=== PATIENT | female | born 1995 | race Caucasian/White ===

== ENCOUNTER 2019-09-18 16:40 | Outpatient (RCR) | payer BC, SELFPAY ==
[2019-07-31 17:20] VITALS: BP 120/75; PULSE 95
[2019-08-07 17:09] VITALS: BP 122/70; PULSE 83
[2019-08-14 17:11] VITALS: BP 119/73; PULSE 92
[2019-08-17 17:11] VITALS: BP 123/70; PULSE 91
[2019-08-21 17:08] VITALS: BP 119/77; PULSE 92
[2019-08-28 17:10] VITALS: BP 118/70; PULSE 96
[2019-09-04 17:01] VITALS: BP 128/72; PULSE 88
[2019-09-11 17:22] VITALS: BP 119/49; PULSE 99
[2019-09-18 17:20] VITALS: BP 125/72; PULSE 97
== END 2019-10-05 07:24 | disposition home or self-care (01) ==
LOC: ANHOBOP 16:40
PROVIDERS: PCP Family Medicine; Visit Provider Obstetrics & Gynecology
DX: O99.353 Diseases of the nervous system complicating pregnancy, third trimester (principal); G40.909 Epilepsy, unspecified, not intractable, without status epilepticus; Z3A.32 32 weeks gestation of pregnancy; Z3A.33 33 weeks gestation of pregnancy; Z3A.34 34 weeks gestation of pregnancy; Z3A.35 35 weeks gestation of pregnancy; Z3A.36 36 weeks gestation of pregnancy; Z3A.37 37 weeks gestation of pregnancy; Z3A.38 38 weeks gestation of pregnancy; Z3A.39 39 weeks gestation of pregnancy
CPT/HCPCS: 59025

== ENCOUNTER 2019-09-19 18:01 | Observation (INO) | payer BC, SELFPAY ==
[2019-09-19 18:33] VITALS: BP 131/93; PULSE 99
[2019-09-19 18:35] LABS: Basophils Percent Auto 0.1 % (0.2-1.2); Eosinophils Absolute Auto 0.1 K/mm3 (0-0.3); Eosinophils Percent Auto 0.7 % (0-4.4); Hematocrit 32.7 % (37.0-47.0); Hemoglobin 10.2 g/dL (12.0-15.0); Immature Granulocyte Absolute 0.05 K/mm3 (0.00-0.031); Immature Granulocyte Percent A 0.5 % (0-0.5); Lymphocytes Absolute Auto 2.22 K/mm3 (0.9-3.2); Lymphocytes Percent Auto 23.5 % (18.3-44.2); Mean Corpuscular HGB Conc 31.2 g/dl (32-36); Mean Corpuscular Hemoglobin 25.2 pg (26-34); Mean Corpuscular Volume 80.9 fl (80-100); Mean Platelet Volume 11.9 fl (7.4-10.4); Monocytes Absolute Auto 0.6 K/mm3 (0.1-0.6); Monocytes Percent Auto 5.8 % (2.6-8.5); Neutrophils Absolute Auto 6.5 K/mm3 (1.3-6.7); Neutrophils Percent Auto 69.4 % (45.5-73.1); Platelet Count Result 234 k/mm3 (150-375); Red Blood Count 4.04 M/mm3 (4.2-5.4); Red Cell Distribution Width 15.8 % (11.5-14.5); White Blood Count 9.4 K/mm3 (4.5-10.0)
[2019-09-19 18:38] VITALS: BMI 43.1
--- NOTE | 2019-09-19 18:46 | LDADM ---
This patient, Maira Cifuentes, was admitted to Labor/Delivery/Recovery 105 on 09/19/19 at 18:01. Plans for labor, pain management and were discussed with patient. Patient/family oriented to hospital policies and general routines including ID bracelet, bed and alarms, visiting hours, pain management, procedures, bathroom and other care routines, personal items, smoking policy, room service/diet and guest tray routines, security routines, and visiting hours. Patient/Family are encouraged to report perceived risks to care and to ask questions if they do not understand what they are told or what they should do. See OBIX for further documentation.
[2019-09-19] MEDS: DINOPROSTONE 10 MG VAG INSERT VAGINAL (19:22)
[2019-09-19] MEDS: AMPICILLIN 2 GM/NS 100 ML 2 GM/100 ML BAG IVPB (19:26)
[2019-09-19] MEDS: LACTATED RINGERS 1,000 ML 125 ML IV CONT (19:27)
[2019-09-19] MEDS: levETIRAcetam 500 MG TABLET 1000 MG PO (21:19)
[2019-09-19] MEDS: AMPICILLIN 1 GM/NS 50 ML 1 GM/50 ML BAG IVPB (23:22)
[2019-09-19 23:28] VITALS: BP 129/79; PULSE 65
[2019-09-20] VITALS (11 sets, daily range): BP systolic 119–133; BP diastolic 52–85; PULSE 74–97; TEMP 36.5–36.8
[2019-09-20] MEDS: AMPICILLIN 1 GM/NS 50 ML 1 GM/50 ML BAG IVPB ×2 (03:56→08:14)
--- NOTE | 2019-09-20 07:32 | WPDOBADMIT ---
Obstetrics - Admit Note Admission Note: record reviewed. No pertinent additions to the history and/or any subsequent changes in the physical findings that are not consistent with the expected course of the were found. Additions to the history and/or subsequent changes in the physical findings follow. G1 at 39+2 for induction of labor, s/p cervidil. Cervix FT/30/-3. AROM unable to be accomplished at this time. Start pitocin.
[2019-09-20 07:40] LABS: Rapid Plasma Reagin Non-Reactive (NonReactive)
[2019-09-20] MEDS: levETIRAcetam 500 MG TABLET 1000 MG PO (07:57)
[2019-09-20] MEDS: OXYTOCIN 30 UNITS/NS 500 ML 30 UNITS/500 ML BAG 6 UNITS IV CONT (08:14)
--- NOTE | 2019-09-28 07:49 | P.PNOB_ITS ---
OB - Triage/Final Diagnosis Evaluation Laboratory results: Laboratory Tests 09/19/19 09/19/19 09/19/19 18:30 18:30 18:30 WBC 9.4 RBC 4.04 L Hgb 10.2 L Hct 32.7 L MCV 80.9 MCH 25.2 L MCHC 31.2 L RDW 15.8 H Plt Count 234 MPV 11.9 H Immature Gran % (Auto) 0.5 Neut % (Auto) 69.4 Lymph % (Auto) 23.5 [place] % (Auto) 5.8 Eos % (Auto) 0.7 Baso % (Auto) 0.1 L Lymph # (Auto) 2.22 [place] # (Auto) 0.6 Eos # (Auto) 0.1 Baso # (Auto) 0.0 Abs Immat Gran (auto) 0.05 H Absolute Neuts (auto) 6.5 Absolute Nucleated RBC 0.0 Nucleated RBC % 0.0 RPR Non-reactive Blood Type O Positive Antibody Screen Negative Final Diagnosis (1) Hypertension affecting in third trimester: Code(s): O16.3 - Unspecified maternal hypertension, third trimester Status: Acute
== END 2019-09-20 10:00 | disposition home or self-care (01) ==
PROVIDERS: Admitting Provider Obstetrics & Gynecology; PCP Family Medicine; Visit Provider Obstetrics & Gynecology
DX: O16.3 Unspecified maternal hypertension, third trimester (principal); Z3A.39 39 weeks gestation of pregnancy
CPT/HCPCS: 36415; 85025; 86592; 86850; 86900; 86901; 96365; 96366; 96375; 96376; A9270; G0378; G0379; J0290; J2590; J7120

== ENCOUNTER 2019-10-03 18:04 | Inpatient (IN) | payer BC, SELFPAY ==
[2019-10-03] VITALS (8 sets, daily range): BP systolic 121–143; BP diastolic 74–83; PULSE 71–111; TEMP 36.3–36.4; BMI 42.7
[2019-10-03 18:38] LABS: Basophils Percent Auto 0.2 % (0.2-1.2); Eosinophils Absolute Auto 0.1 K/mm3 (0-0.3); Eosinophils Percent Auto 0.8 % (0-4.4); Hematocrit 34.6 % (37.0-47.0); Hemoglobin 10.5 g/dL (12.0-15.0); Immature Granulocyte Absolute 0.05 K/mm3 (0.00-0.031); Immature Granulocyte Percent A 0.5 % (0-0.5); Lymphocytes Absolute Auto 2.25 K/mm3 (0.9-3.2); Lymphocytes Percent Auto 22.8 % (18.3-44.2); Mean Corpuscular HGB Conc 30.3 g/dl (32-36); Mean Corpuscular Hemoglobin 24.6 pg (26-34); Mean Platelet Volume 12.4 fl (7.4-10.4); Monocytes Absolute Auto 0.6 K/mm3 (0.1-0.6); Monocytes Percent Auto 5.6 % (2.6-8.5); Neutrophils Absolute Auto 6.9 K/mm3 (1.3-6.7); Neutrophils Percent Auto 70.1 % (45.5-73.1); Nucleated Red Blood Cells Perc 0.2 % (0.0-0.2); Platelet Count Result 239 k/mm3 (150-375); Red Blood Count 4.27 M/mm3 (4.2-5.4); Red Cell Distribution Width 16.4 % (11.5-14.5); White Blood Count 9.9 K/mm3 (4.5-10.0)
--- NOTE | 2019-10-03 18:39 | LDADM ---
This patient, Maira Cifuentes, was admitted to Labor/Delivery/Recovery 108 on 10/03/19 at 18:04. Plans for labor, pain management and were discussed with patient. Patient/family oriented to hospital policies and general routines including ID bracelet, bed and alarms, visiting hours, pain management, procedures, bathroom and other care routines, personal items, smoking policy, room service/diet and guest tray routines, security routines, and visiting hours. Patient/Family are encouraged to report perceived risks to care and to ask questions if they do not understand what they are told or what they should do. See OBIX for further documentation.
[2019-10-03] MEDS: MISOPROSTOL 25 MCG TABLET VAGINAL ×2 (19:02→23:06)
[2019-10-03] MEDS: LACTATED RINGERS 1,000 ML 125 ML IV CONT (19:02)
[2019-10-03] MEDS: AMPICILLIN 2 GM/NS 100 ML 2 GM/100 ML BAG IVPB (19:02)
[2019-10-03] MEDS: levETIRAcetam 500 MG TABLET 1000 MG PO (22:22)
[2019-10-03] MEDS: AMPICILLIN 1 GM/NS 50 ML 1 GM/50 ML BAG IVPB (23:07)
[2019-10-04] VITALS (199 sets, daily range): BP systolic 95–156; BP diastolic 39–107; PULSE 61–147; TEMP 36.6–37.6; O2SAT 96–100
[2019-10-04] MEDS: AMPICILLIN 1 GM/NS 50 ML 1 GM/50 ML BAG IVPB ×6 (03:08→23:05)
[2019-10-04] MEDS: MISOPROSTOL 25 MCG TABLET VAGINAL (03:08)
--- NOTE | 2019-10-04 06:25 | WPDANESEPP ---
Anes - Eval Pre Procedure Procedure: labor epidural Date/Time: 10/04/19 06:25 Surgeon: raji Preop Diagnosis: pain during labor Pre Op Diagnosis: Ind Patient Data Age: 24 Gender: F Height: 1.57 m Weight: 106 kg Last Vital Signs Temp 36.6 C 10/04/19 03:08 Pulse 80 10/04/19 03:08 BP 156/83 H 10/04/19 03:08 Allergies Allergy/AdvReac Type Severity Reaction Status Date / Time No Known Allergies Allergy Mild Verified 08/28/19 16:47 Home Medications Medication Instructions Recorded Confirmed Type PNV cmb#95-ferrous fumarate-FA 1 tablet PO DAILY 08/28/19 08/30/19 History [] aspirin 81 mg PO DAILY 08/28/19 08/30/19 History cetirizine [Zyrtec] 10 mg PO DAILY 08/28/19 08/30/19 History folic acid 1,600 mcg PO BID 08/28/19 09/19/19 History levetiracetam [Keppra] 1,000 mg PO BID 08/28/19 09/19/19 History famotidine [Pepcid] 20 mg PO PRN PRN 08/30/19 09/19/19 History Laboratory Tests 10/03/19 10/03/19 10/03/19 18:33 18:33 18:33 WBC 9.9 K/mm3 K/mm3 (4.5-10.0) RBC 4.27 M/mm3 M/mm3 (4.2-5.4) Hgb 10.5 g/dL L g/dL (12.0-15.0) Hct 34.6 % L % (37.0-47.0) MCV 81.0 fl fl (80-100) MCH 24.6 pg L pg (26-34) MCHC 30.3 g/dl L g/dl (32-36) RDW 16.4 % H % (11.5-14.5) Plt Count 239 k/mm3 k/mm3 (150-375) MPV 12.4 fl H fl (7.4-10.4) Immature Gran % (Auto) 0.5 % % (0-0.5) Neut % (Auto) 70.1 % % (45.5-73.1) Lymph % (Auto) 22.8 % % (18.3-44.2) [place] % (Auto) 5.6 % % (2.6-8.5) Eos % (Auto) 0.8 % % (0-4.4) Baso % (Auto) 0.2 % % (0.2-1.2) Lymph # (Auto) 2.25 K/mm3 K/mm3 (0.9-3.2) [place] # (Auto) 0.6 K/mm3 K/mm3 (0.1-0.6) Eos # (Auto) 0.1 K/mm3 K/mm3 (0-0.3) Baso # (Auto) 0.0 K/mm3 K/mm3 (0.0-0.1) Abs Immat Gran (auto) 0.05 K/mm3 H K/mm3 (0.00-0.031) Absolute Neuts (auto) 6.9 K/mm3 H K/mm3 (1.3-6.7) Absolute Nucleated RBC 0.0 K/mm3 K/mm3 (0.0-0.012) Nucleated RBC % 0.2 % % (0.0-0.2) RPR Pending Blood Type O Positive Antibody Screen Negative Patient hx anesthesia problems: none Family hx anesthesia problems: none PMFSH Past Medical History Medical History (Updated 10/04/19 @ 06:26 by Andreea Oconnor CRNA) GERD (gastroesophageal reflux disease) Hypertension affecting in third trimester Obesity Family History Family History (Updated 08/30/19 @ 13:39 by Maria C Ricardo RN) Mother Infertility Grandparent Diabetes mellitus Social History Social History Smoking status: Never smoker Second hand tobacco smoke exposure: No Substance use: never Gender identity (if verbalized by the patient): Female Spiritual care concerns: No Exam Day of Procedure 10/04/19 06:25
--- NOTE | 2019-10-04 07:41 | P.HP_ITS ---
Obstetrics - Admit Note Admission Note: record reviewed. No pertinent additions to the history and/or any subsequent changes in the physical findings that are not consistent with the expected course of the were found. Additions to the history and/or subsequent changes in the physical findings follow. G1 at 41+2 for induction of labor. s/p cytotec X 3. Cervix 1/50/- 2/soft/anterior. AROM with clear fluid. Start pitocin. GBS+ so continue antibiotics.
[2019-10-04] MEDS: OXYTOCIN 30 UNITS/NS 500 ML 30 UNITS/500 ML BAG 6 UNITS IV CONT (08:52)
[2019-10-04] MEDS: LACTATED RINGERS 1,000 ML 125 ML IV CONT ×3 (08:52→20:49)
[2019-10-04] MEDS: levETIRAcetam 500 MG TABLET 1000 MG PO ×2 (08:52→20:49)
[2019-10-04 11:55] LABS: Rapid Plasma Reagin Non-Reactive (NonReactive)
[2019-10-04] MEDS: LORATADINE 10 MG TABLET PO (20:49)
[2019-10-05] VITALS (34 sets, daily range): BP systolic 91–143; BP diastolic 31–106; PULSE 74–166; RESP 16; TEMP 36.6–37.1; O2SAT 98–100
[2019-10-05] MEDS: METHYLERGONOVINE MALEATE 0.2 MG/ML VIAL IM (01:23)
--- NOTE | 2019-10-05 01:36 | PM.OBPRVD ---
OB - Delivery Note Procedure Delivery date: 10/05/19 events: Labor Induction Intrapartal events: Prolonged Labor > 20 hours and Seizure Activity (history of) Induction method: AROM, per pitocin protocol and other (cytotec) Delivery monitor: external FHT, external uterine and internal uterine Route of delivery: Laceration description: Perineal - 2nd Degree Delivery repair: vicryl (2-0) Specimen: No Estimated blood loss (mL): 212 Anesthesia type: Epidural Disposition: floor [place] Baby Date of : 10/05/19 Time of : 01:15 Weeks of gestation at delivery: 41 Infant gender: Female Weight (pounds): 6 Weight (ounces): 13 presentation: vertex position: Right Occiput Anterior Placenta delivery description: Spontaneous cord vessel description: 3 Vessels and Nuchal Cord score one minute: 8 score five minutes: 9
[2019-10-05] MEDS: OXYTOCIN 30 UNITS/NS 500 ML 30 UNITS/500 ML BAG 125 UNITS IV CONT (01:49)
[2019-10-05] MEDS: ONDANSETRON INJ 4 MG/2 ML VIAL IV PUSH (02:07)
[2019-10-05] MEDS: IBUPROFEN 600 MG TABLET PO ×4 (02:54→23:57)
[2019-10-05] MEDS: WITCH HAZEL 40 PADS 1 PAD TOPICAL (03:21)
[2019-10-05] MEDS: BENZOCAINE 20% AER SPR (*SP) 56 GM CAN 1 SPRAY TOPICAL (03:21)
--- NOTE | 2019-10-05 04:05 | OBPPTRN ---
Patient transferred to post room #292 via wheelchair. Support person present. Oriented to unit, room, information board, rooming in, admission packet and security measures. Patient verbalizes understanding. with patient.
--- NOTE | 2019-10-05 07:50 | PM.OBPNVD ---
OB - PN: Subj Subjective Date/time seen: 10/05/19 07:50 Patient comments: no complaints, pain well controlled, incisional pain, tolerating diet and flatus present OB - PN: Obj Data Labs CBC & Chem 7: 10/03/19 18:33 Labs: Laboratory Results - last 24 hr 10/03/19 18:33 RPR Non-reactive OB - PN A/P Plan day: 0 Plan: routine care Comments: No problems, routine care Time Spent With Patient Time: Total time spent is greater than 50% in coordination of care (as documented) at patient's floor/unit and/or counseling patient: Exam Const: General: comfortable, no acute distress and alert Resp: Effort & Inspection: normal respiratory effort Auscultation: no crackles, no rales and no rhonchi Cardio: Rate: regular rate Heart sounds: no click, no murmurs and no rubs GI: Inspection: non-distended GI Palp: No Tenderness to palpation present (GI) Auscultation: normal bowel sounds Other: Incision - CDI Extrem: General: normal to inspection, no pedal edema and no calf tenderness
--- NOTE | 2019-10-05 09:30 | PC.NURSE ---
PT introductions made and plan of care discussed per post , pain management, breast feeding, pumping, supplementing, nipple shield and daily care activities. PT verbalized understanding of such care
--- NOTE | 2019-10-05 09:30 | PC.NURSE ---
Consulted with patient, mother reports infant is sleepy and makes sleepy attempts to latch, once at breast does not suckle. Mother has been given a nipple shield to assist with latching. Mother has some bruising to both nipples. Discussed nipple shield precautions and possible complications. Instructions given on application and cleaning of shield. Patient able to return demonstration on proper application of shield. Discussed the need to initiate pumping if infant continues to nurse with the shield. Patient verbalizes understanding. Reviewed feeding cues, frequencies, duration of feedings, feeding elimination flow sheet, and signs of adequate intake. Demonstrated stimulation techniques to wake infant for feeding. Assisted with infant to breast with shield. Reviewed positioning/alignment in cross cradle, holding breast in U hold and guided asymmetrical latch on. After several attempts infant was able to latch correctly. held nipple shield in her mouth a few short chewy sucks noted. Advised to stimulate to keep infant awake and nursing. would respond to stimulate with a short burst of suckling. Advised mother to allow to attempt 10-15 minutes, mother/FOB will then supplement. Feeding plan will be to attempt for 10-15 minutes every three hours before if feeding cues noted, then supplement 15mls and pump for 15 minutes. Advised to initiate pumping, mother would like to pump after next feeding.
[2019-10-05] MEDS: levETIRAcetam 500 MG TABLET 1000 MG PO ×2 (09:54→17:38)
[2019-10-05] MEDS: MULTIVIT/MIN/PREN/FOL AC/IRON TABLET 1 TAB PO (09:55)
[2019-10-05] MEDS: DOCUSATE SODIUM 100 MG CAPSULE PO ×2 (09:55→17:38)
[2019-10-05] MEDS: LANOLIN (LANSINOH) 7.5 GM CREAM 1 APPLIC TOPICAL (09:56)
--- NOTE | 2019-10-05 13:00 | PC.NURSE ---
Attempt to assist with feeding, mother reports she independently put to breast and eagerly latched nursing for 15+ minutes. Requested mother call out next feeding.
--- NOTE | 2019-10-05 14:20 | PC.NURSE ---
Mother called out for assist with feeding. Suggested mother sit up in chair for feeding. Assisted with infant to breast. Reviewed positioning/alignment in football, holding breast in C hold and guided asymmetrical latch on. Several attempts before infant was able to latch correctly and without discomfort to mother. Once on infant nursed eagerly, with steady draws and frequent swallowing noted. Reviewed signs of a correct latch, effective nursing and suck swallow ratio. was able to maintain latch without discomfort to mother. Nipple care reviewed. Demonstrated how to adjust latch more deeply while feeding. Advised to stimulate to keep awake and nursing effectively for increased intake and maintaining deep latch. Instructed mother to call out for RN assistance if she is unable to latch infant for feeding or she has discomfort with nursing. Instructed feeding should be initiated three hours from start of last feeding or if feeding cues are noted before. Mother voiced understanding of information shared.
[2019-10-05] MEDS: LORATADINE 10 MG TABLET PO (22:35)
[2019-10-06] MEDS: ACETAMINOPHEN 325 MG TABLET 650 MG PO (03:27)
[2019-10-06 04:10] LABS: Hematocrit 29.6 % (37.0-47.0); Hemoglobin 8.9 g/dL (12.0-15.0)
[2019-10-06 08:30] VITALS: BP 119/71; PULSE 75; RESP 16; TEMP 36.3; O2SAT 100
[2019-10-06] MEDS: POLYSACCHARIDE IRON COMPLEX 150 MG CAPSULE PO ×2 (08:56→16:53)
[2019-10-06] MEDS: MULTIVIT/MIN/PREN/FOL AC/IRON TABLET 1 TAB PO ×2 (08:56→08:58)
[2019-10-06] MEDS: DOCUSATE SODIUM 100 MG CAPSULE PO ×2 (08:56→16:53)
[2019-10-06] MEDS: IBUPROFEN 600 MG TABLET PO ×2 (08:58→16:53)
[2019-10-06] MEDS: levETIRAcetam 500 MG TABLET 1000 MG PO ×2 (08:58→16:52)
--- NOTE | 2019-10-06 13:56 | PM.OBPNVD ---
OB - PN: Subj Subjective Date/time seen: 10/06/19 0945 Pt doing well no complaints. OB - PN: Obj Data Labs CBC & Chem 7: 10/06/19 03:52 Labs: Laboratory Results - last 24 hr 10/06/19 03:52 Hgb 8.9 L Hct 29.6 L OB - PN A/P Plan day: 1 Plan: routine care Comments: Pt had a few elevated pressures after delivery. Denies pih symptoms. Platelets normal. Pt does have a history of a seizure disorder but nothing recent. Pt would like to stay until tomorrow anyway. Will reassess in the morning. Time Spent With Patient Time: Total time spent is greater than 50% in coordination of care (as documented) at patient's floor/unit and/or counseling patient: Review of Systems Review of Systems: All systems reviewed & are unremarkable except as noted in HPI and below Exam Narrative: Exam Narrative: Pt denies h/a, v/d, or e/p. Small lower ext edema. DTR 2+. No clonus. Const: General: comfortable Chest: Breast/axilla inspection: normal inspection of the breasts Resp: Effort & Inspection: normal respiratory effort Auscultation: clear to auscultation bilaterally Cardio: Rate: regular rate GI: Auscultation: normal bowel sounds Psych: Appearance: grossly normal Affect: normal affect Attitude: cooperative Judgement: Good judgement present (Psych)
[2019-10-06 19:33] VITALS: BP 132/66; PULSE 97; RESP 18; TEMP 37.3; O2SAT 100
--- NOTE | 2019-10-06 22:30 | PC.NURSE ---
Patient viewed the discharge video Mother & Baby Care, The First Two Weeks . Patient was given the opportunity and encouraged to ask questions. Patient verbalized understanding of information shared and has been given the mother/baby guide for home reference.
[2019-10-07 07:30] VITALS: BP 127/70; PULSE 82; RESP 16; TEMP 36.6; O2SAT 100
[2019-10-07] MEDS: POLYSACCHARIDE IRON COMPLEX 150 MG CAPSULE PO (09:08)
[2019-10-07] MEDS: MULTIVIT/MIN/PREN/FOL AC/IRON TABLET 1 TAB PO ×2 (09:08)
[2019-10-07] MEDS: DOCUSATE SODIUM 100 MG CAPSULE PO (09:08)
[2019-10-07] MEDS: levETIRAcetam 500 MG TABLET 1000 MG PO (09:09)
[2019-10-07] MEDS: IBUPROFEN 600 MG TABLET PO (09:12)
--- NOTE | 2019-10-07 11:22 | PM.OBPNVD ---
OB - PN: Subj Subjective Date/time seen: 10/07/19 11:22 OB - PN: Obj Data Labs CBC & Chem 7: 10/06/19 03:52 OB - PN A/P Plan day: 2 Plan: routine care and discharge home (RTC 4 weeks. PIH precautions.) Time Spent With Patient Time: Total time spent is greater than 50% in coordination of care (as documented) at patient's floor/unit and/or counseling patient: Time with patient: less than 15 minutes Review of Systems Review of Systems: All systems reviewed & are unremarkable except as noted in HPI and below Exam Narrative: Exam Narrative: Pt doing great. Denies h/a, v/d, or e/p. 1+ edema. DTR 2+. No clonus. Const: General: comfortable Chest: Breast/axilla inspection: normal inspection of the breasts Resp: Effort & Inspection: normal respiratory effort Cardio: Rate: regular rate Psych: Appearance: grossly normal Affect: normal affect Attitude: cooperative Judgement: Good judgement present (Psych)
[2019-10-08 08:22] VITALS: BP 140/84; PULSE 78; RESP 22
--- NOTE | 2019-10-18 13:01 | PM.OBDSVD ---
DS: Admitting Diagnosis Admitting Diagnosis Admitting Diagnosis: Encounter for supervision of normal , unspecified, third trimester DS: Discharge Diagnosis Discharge Diagnosis (1) : Code(s): Z34.90 - Encounter for supervision of normal , unspecified, unspecified trimester Status: Acute OB - DS: Summary OB Procedures : None OB Procedures Intrapartum: Spontaneous Vag Delivery OB Procedures: : None Peripartum Data Delivery Method: Natural Vaginal Laceration description: Perineal - 2nd Degree complications: none Status at Discharge Functional status at discharge: independent ambulation Overall status at discharge: patient is progressing back to baseline Time Spent with Patient Time attestation: Total time spent providing and/or coordinating discharge services: Time spent: Less than 30 minutes Discharge Plan Discharge Attending physician on discharge: Ethel Grover Consulting providers: Tiff Oh Discharging Clinician: Tiff Oh Anticipated Discharge Date/Time: 10/07/19 13:02 Patient Disposition: Home, Self-Care Activity: pelvic rest Diet: as tolerated Discharge Instructions: Education: Mom and Baby Guide Given to: Mother Follow-Up: Call your delivering provider's office for an appointment to be seen in: Call for appointment Mom and baby should come to the [facility] for the follow-up appointment. Appointment Date/Time: 2019 at 8:00 a.m. What to expect at your follow-up visit: Blood Pressure Check Physical Assessment Call [phone] if you are unable to keep your appointment time. BREAST CARE: 1. Wear a snug supportive bra. 2. For engorgement discomfort: Breast Feeding: A. Apply warm moist washcloths B. Express milk as needed to relieve engorgement C. Wear loose clothing 3. For sore nipples: A. Identify correct latch-on B. Apply warm moist washcloths before and after nursing C. Air dry nipples after nursing D. May apply Lansinoh cream to nipples EPISIOTOMY/PERINEAL CARE: 1. Until bleeding stops, use your jeanna bottle after urinating 2. Change your pad frequently throughout the day 3. You may take sitz baths several times a day (fill your bathtub with warm water and soak for 20 minutes.) Do NOT bathe in the water 4. No tub baths until seen by your physician - You may shower ACTIVITY: 1. Rest as much as possible. 2. Do not exercise or lift anything heavier than your baby (such as laundry or other children.) 3. Avoid stairs or driving as much as possible. 4. Do not put anything into the vagina. No douching, tampons, or sexual activity until seen by physician. NOTIFY PHYSICIAN IF YOU HAVE ANY QUESTIONS OR IF ANY OF THE FOLLOWING SYMPTOMS OCCUR: 1. If your perineum becomes red, swollen, or more painful than what you have experienced in the hospital. 2. If your vaginal bleeding becomes foul smelling. 3. If your vaginal bleeding becomes more heavy than a period or if your bleeding changes from pink to bright red. However, you may pass an occasional walnut-sized clot once or twice for the first week . 4. If you experience a sharp, shooting pain in you calves. 5. If you discover a hard, reddened area on your breast or if you experience flu-like symptoms. DIET: 1. Eat regular, well-balanced meals. 2. Drink plenty of fluids daily. For , drink to thirst. Stand Alone Forms: General Discharge Information Follow-up/Referrals: Ethel Grover MD [Physician] - Call for Appointment Discharge Medications: Continued cetirizine [Zyrtec] 10 mg Tablet 10 mg PO DAILY RF: 0 folic acid 400 mcg Tablet 1,600 mcg PO BID RF: 0 aspirin 81 mg Tablet,Chewable 81 mg PO DAILY RF: 0 levetiracetam [Keppra] 1,000 mg Tablet 1,000 mg PO BID RF: 0 PNV cmb
== END 2019-10-07 13:25 | disposition home or self-care (01) | DRG 807 ==
LOC: ANHOB2 10-07 12:38 → ANHLDR 10-10 06:49 → ANHOB2 10-10 06:49
PROVIDERS: Admitting Provider Obstetrics & Gynecology; PCP Family Medicine; Visit Provider Obstetrics & Gynecology
DX: O99.824 Streptococcus B carrier state complicating childbirth (principal); Z37.0 Single live birth; O70.1 Second degree perineal laceration during delivery; O76 Abnormality in fetal heart rate and rhythm complicating labor and delivery; O69.81X0 Labor and delivery complicated by cord around neck, without compression, not applicable or unspecified; O99.214 Obesity complicating childbirth; E66.9 Obesity, unspecified; K21.9 Gastro-esophageal reflux disease without esophagitis; O99.62 Diseases of the digestive system complicating childbirth; Z3A.41 41 weeks gestation of pregnancy
CPT/HCPCS: 36415; 85014; 85018; 85025; 86592; 86850; 86900; 86901; A9270; J0290; J2210; J2405; J2590; J2795; J7120

== ENCOUNTER 2021-07-08 10:54 | Outpatient (CLI) | payer BC, SELFPAY ==
[2021-07-08 11:36] LABS: Basophils Percent Auto 0.2 % (0.2-1.2); Eosinophils Absolute Auto 0.2 K/mm3 (0-0.3); Eosinophils Percent Auto 1.8 % (0-4.4); Hematocrit 40.8 % (37.0-47.0); Hemoglobin 12.6 g/dL (12.0-15.0); Immature Granulocyte Absolute 0.03 K/mm3 (0.00-0.031); Immature Granulocyte Percent A 0.3 % (0-0.5); Mean Corpuscular HGB Conc 30.9 g/dl (32-36); Mean Corpuscular Hemoglobin 25.6 pg (26-34); Mean Corpuscular Volume 82.9 fl (80-100); Mean Platelet Volume 11.3 fl (7.4-10.4); Monocytes Absolute Auto 0.5 K/mm3 (0.1-0.6); Monocytes Percent Auto 4.5 % (2.6-8.5); Neutrophils Absolute Auto 6.6 K/mm3 (1.3-6.7); Neutrophils Percent Auto 62.2 % (45.5-73.1); Platelet Count Result 270 k/mm3 (150-375); Red Blood Count 4.92 M/mm3 (4.2-5.4); Red Cell Distribution Width 14.9 % (11.5-14.5); White Blood Count 10.6 K/mm3 (4.5-10.0)
[2021-07-08 11:43] LABS: Add Urine Microscopic? NO; Appearance Urine Clear (Clear); Bilirubin Urine Negative (Negative); Blood Urine Negative (Negative); Color Urine Yellow (Yellow); Glucose Urine UA Negative (Negative); Ketones Urine Negative (Negative); Leukocyte Esterase Ur Negative LEU/UL (NEGATIVE); Nitrate Urine Negative (Negative); Protein Urine Negative (Negative); Specific Grav Ur 1.011 (1.001-1.035); Urobilinogen Urine Negative mg/dL (<2.0)
[2021-07-08 12:31] LABS: HIV 1/2 Ab P24 Ag Result Negative (Negative)
[2021-07-08 12:42] LABS: Hepatitis B Surface Antigen Negative (Negative)
[2021-07-08 12:56] LABS: Hepatitis C Virus Antibody Negative (Negative)
[2021-07-08 13:10] LABS: Rubella IgG Antibody > 120.0 IU/ML
[2021-07-09 11:41] LABS: Rapid Plasma Reagin Non-Reactive (NonReactive)
[2021-07-14 23:26] LABS: Hematocrit 39.9 % (35.0-45.0); Hemoglobin 12.5 g/dL (11.7-15.5); MCH 25.1 pg (27.0-33.0); RDW 14.6 % (11.0-15.0); Red Blood Cell Count 4.99 Mill/uL (3.80-5.10)
== END 2021-07-08 10:55 | disposition home or self-care (01) ==
LOC: ANHLAB 10:58
PROVIDERS: PCP Family Medicine; Visit Provider Obstetrics & Gynecology
DX: Z34.90 Encounter for supervision of normal pregnancy, unspecified, unspecified trimester (principal); Z20.828 Contact with and (suspected) exposure to other viral communicable diseases
CPT/HCPCS: 36415; 81003; 83021; 84443; 85025; 86592; 86703; 86747; 86762; 86787; 86803; 86850; 86900; 86901; 87086; 87340; G0432

== ENCOUNTER 2021-07-13 10:04 | Outpatient (CLI) | payer BC, SELFPAY ==
--- NOTE | ~2021-07-13 | US_ITS ---
CORRECTED REPORT US OB <= 14 weeks fetus added to report. 07/27/2021 sef EXAMINATION: US OB <= 14 weeks fetus, US OB <= 14 wk fetus add gest, US OB transvaginal EXAM DATE: 07/13/2021 11:00 (accession [id number]), 07/13/2021 11:01 (accession [id number]) INDICATION: Check dating and viability. 1st trimester.. TECHNIQUE: Pelvic obstetrical transabdominal, transvaginal twin sonogram was performed by a technologist. There are multiple grayscale and Doppler images available for interpretation. There are no earlier studies of this gestation for comparison. FINDINGS: The uterus measures 11.6 x 6.7 x 7.1 cm. There are 2 live intrauterine gestations identified, 2 yolk sacs and suspicion of thin sac separation, probably diamniotic. Can't confidently distinguish dichorionic versus monochorionic. Both fetuses have a heart rate of 178 bpm, crown-rump length of 2.0 cm corresponding to estimated gestational age 8 weeks 4 days. Small subchorionic hematoma measuring 6 x 8 mm. Right ovary probably has the corpus luteal cyst. Both ovaries are morphologically normal with flow confirmed. IMPRESSION: 1. Live twin gestation likely diamniotic. Age by ultrasound 8 weeks 4 days with RENITA 02/18. 2. Small subchorionic hemorrhage. Reviewed, dictated and finalized at location A. [facility] MTDD IMPRESSION: 1. Live twin gestation likely diamniotic. Age by ultrasound 8 weeks 4 days with RENITA 02/18. 2. Small subchorionic hemorrhage.
== END 2021-07-13 10:05 | disposition home or self-care (01) ==
LOC: ANHIMG 10:08
PROVIDERS: PCP Family Medicine; Visit Provider Obstetrics & Gynecology
DX: Z36.89 Encounter for other specified antenatal screening (principal); O30.001 Twin pregnancy, unspecified number of placenta and unspecified number of amniotic sacs, first trimester; O36.8911 Maternal care for other specified fetal problems, first trimester, fetus 1; Z3A.08 8 weeks gestation of pregnancy
CPT/HCPCS: 76801; 76802; 76817

== ENCOUNTER 2021-11-28 08:53 | Outpatient (CLI) | payer BC, SELFPAY ==
[2021-11-28 10:59] LABS: Basophils Percent Auto 0.2 % (0.2-1.2); Eosinophils Absolute Auto 0.1 K/mm3 (0-0.3); Eosinophils Percent Auto 0.9 % (0-4.4); Hematocrit 31.8 % (37.0-47.0); Hemoglobin 9.5 g/dL (12.0-15.0); Immature Granulocyte Absolute 0.04 K/mm3 (0.00-0.031); Immature Granulocyte Percent A 0.5 % (0-0.5); Lymphocytes Percent Auto 21.9 % (18.3-44.2); Mean Corpuscular HGB Conc 29.9 g/dl (32-36); Mean Corpuscular Hemoglobin 25.4 pg (26-34); Mean Platelet Volume 11.7 fl (7.4-10.4); Monocytes Absolute Auto 0.5 K/mm3 (0.1-0.6); Monocytes Percent Auto 5.2 % (2.6-8.5); Neutrophils Absolute Auto 6.2 K/mm3 (1.3-6.7); Neutrophils Percent Auto 71.3 % (45.5-73.1); Platelet Count Result 200 k/mm3 (150-375); Red Blood Count 3.74 M/mm3 (4.2-5.4); Red Cell Distribution Width 15.9 % (11.5-14.5); White Blood Count 8.7 K/mm3 (4.5-10.0)
[2021-11-28 11:11] LABS: Glucose 1 Hour PP 50gm Dose 103 mg/dL
== END 2021-11-28 08:54 | disposition home or self-care (01) ==
LOC: ANHLAB 08:54
PROVIDERS: PCP Family Medicine; Visit Provider Obstetrics & Gynecology
DX: O30.002 Twin pregnancy, unspecified number of placenta and unspecified number of amniotic sacs, second trimester (principal); Z3A.00 Weeks of gestation of pregnancy not specified
CPT/HCPCS: 36415; 82947; 85025

== ENCOUNTER 2022-01-02 11:18 | Outpatient (CLI) | payer BC, SELFPAY ==
[2022-01-02 11:42] LABS: Basophils Percent Auto 0.2 % (0.2-1.2); Eosinophils Absolute Auto 0.1 K/mm3 (0-0.3); Eosinophils Percent Auto 1.1 % (0-4.4); Hematocrit 38.1 % (37.0-47.0); Hemoglobin 11.6 g/dL (12.0-15.0); Immature Granulocyte Absolute 0.05 K/mm3 (0.00-0.031); Immature Granulocyte Percent A 0.5 % (0-0.5); Lymphocytes Absolute Auto 2.34 K/mm3 (0.9-3.2); Lymphocytes Percent Auto 24.1 % (18.3-44.2); Mean Corpuscular HGB Conc 30.4 g/dl (32-36); Mean Corpuscular Hemoglobin 27.2 pg (26-34); Mean Corpuscular Volume 89.4 fl (80-100); Mean Platelet Volume 12.8 fl (7.4-10.4); Monocytes Absolute Auto 0.4 K/mm3 (0.1-0.6); Monocytes Percent Auto 4.2 % (2.6-8.5); Neutrophils Absolute Auto 6.8 K/mm3 (1.3-6.7); Neutrophils Percent Auto 69.9 % (45.5-73.1); Platelet Count Result 205 k/mm3 (150-375); Red Blood Count 4.26 M/mm3 (4.2-5.4); White Blood Count 9.7 K/mm3 (4.5-10.0)
[2022-01-02 12:32] LABS: HIV 1/2 Ab P24 Ag Result Negative (Negative)
[2022-01-04 07:35] LABS: Rapid Plasma Reagin Non-Reactive (NonReactive)
== END 2022-01-02 11:19 | disposition home or self-care (01) ==
PROVIDERS: PCP Family Medicine; Visit Provider Obstetrics & Gynecology
DX: O30.003 Twin pregnancy, unspecified number of placenta and unspecified number of amniotic sacs, third trimester (principal); Z3A.00 Weeks of gestation of pregnancy not specified
CPT/HCPCS: 36415; 85025; 86592; 86703; G0432

== ENCOUNTER 2022-01-07 15:00 | Outpatient (CLI) | payer BC, SELFPAY ==
[2022-01-07] MEDS: BETAMETHASONE SOD PHOS/ACETATE 30 MG/5 ML VIAL 12 MG IM (15:21)
== END 2022-01-07 15:01 | disposition home or self-care (01) ==
LOC: ANHOBOP 15:10
PROVIDERS: PCP Family Medicine; Visit Provider Obstetrics & Gynecology
DX: O36.1990 Maternal care for other isoimmunization, unspecified trimester, not applicable or unspecified (principal)
CPT/HCPCS: 96372; J0702

== ENCOUNTER 2022-01-08 16:12 | Outpatient (CLI) | payer BC, SELFPAY ==
[2022-01-08] MEDS: BETAMETHASONE SOD PHOS/ACETATE 30 MG/5 ML VIAL 12 MG IM (16:30)
== END 2022-01-08 16:13 | disposition home or self-care (01) ==
PROVIDERS: PCP Family Medicine; Visit Provider Obstetrics & Gynecology
DX: O36.8990 Maternal care for other specified fetal problems, unspecified trimester, not applicable or unspecified (principal); Z3A.00 Weeks of gestation of pregnancy not specified
CPT/HCPCS: 96372; J0702

== ENCOUNTER 2022-01-14 15:40 | Outpatient (CLI) | payer BC, SELFPAY ==
[2022-01-14 15:58] LABS: Hematocrit 39.2 % (37.0-47.0); Hemoglobin 12.1 g/dL (12.0-15.0); Mean Corpuscular HGB Conc 30.9 g/dl (32-36); Mean Corpuscular Hemoglobin 28.3 pg (26-34); Mean Corpuscular Volume 91.8 fl (80-100); Mean Platelet Volume 12.1 fl (7.4-10.4); Platelet Count Result 158 k/mm3 (150-375); Red Blood Count 4.27 M/mm3 (4.2-5.4); Red Cell Distribution Width 21.3 % (11.5-14.5); White Blood Count 8.4 K/mm3 (4.5-10.0)
== END 2022-01-14 15:41 | disposition home or self-care (01) ==
LOC: ANHLAB 15:45
PROVIDERS: PCP Family Medicine; Visit Provider Obstetrics & Gynecology
DX: O30.002 Twin pregnancy, unspecified number of placenta and unspecified number of amniotic sacs, second trimester (principal); Z3A.35 35 weeks gestation of pregnancy
CPT/HCPCS: 36415; 85027; 86850; 86900; 86901

== ENCOUNTER 2022-01-15 08:45 | Inpatient (IN) | payer BC, SELFPAY ==
[2022-01-15] VITALS (43 sets, daily range): BP systolic 127–158; BP diastolic 55–125; PULSE 64–132; RESP 16–20; TEMP 36.2–37; O2SAT 86–100; BMI 50.0
--- NOTE | 2022-01-15 09:06 | PM.IMHP ---
H&P: HPI History of Present Illness Date/Time: 01/15/22 09:06 Chief Complaint: Planned section Narrative: Patient is a 26 y/o at 35 weeks with mono/di twins. LMP 05/14/2021 with an EDC 02/18/2022. Consistent with 8 week ultrasound.Twin A unstable lie in the oblique position, twin B breech. PNC also significant for twin A with IUGR, >20% discordance, and both twins with polyhydramnios. The surveillance testing has been normal. Initially there were borderline dopplers with twin A but subsequently dopplers have been normal. Twin A also with borderline pylectasis which they are aware will need assessment. [facility] has recommended delivery between 34-35/67 weeks. She did receive steroids last week due to pending delivery. We have discussed risk of delivery and risk of continuing . Review of Systems Review of Systems: All systems reviewed & are unremarkable except as noted in HPI and below Constitutional: Constitutional: Reports no additional constitutional complaints and Denies headache(s) Eyes: Eyes: Denies spots in vision ENT: Reports system reviewed and no additional complaints, except as documented and Denies headache(s) Cardiovascular: Cardiovascular: Denies chest pain and Denies dyspnea Respiratory: Respiratory: Denies dyspnea Gastrointestinal: Gastrointestinal: Reports no additional gastrointestinal complaints Genitourinary: Genitourinary: Reports amenorrhea Musculoskeletal: Musculoskeletal: Reports no additional musculoskeletal complaints Integumentary/Breasts: Skin/Breast: Denies breast mass and Denies rash Neurologic: Denies headache(s) Psychiatric: Psychiatric: Reports no additional psychiatric complaints [facility] Past Medical History Medical History Epilepsy GERD (gastroesophageal reflux disease) Obesity Vaginal delivery x1 Surgical History Surgical History [place] teeth extracted 2013 Family History Family History Mother Infertility Hypertension Grandparent Diabetes mellitus Grandparent Leukemia Father Heart disease has aortic valve stenosis (replacement 01/2018) Social History Social History Smoking status: Never smoker Second hand tobacco smoke exposure: No Alcohol intake: current Substance use: never Gender identity (if verbalized by the patient): Female Spiritual care concerns: No Agree to blood products: Yes Meds Home Medications and Allergies Home Medications Medication Instructions Recorded Confirmed Type cetirizine 10 mg tablet (Zyrtec) 10 mg PO DAILY 08/28/19 01/15/22 History levetiracetam 1,000 mg tablet 1,000 mg PO BID 08/28/19 01/15/22 History (Keppra) docosahexaenoic acid 200 mg 200 mg PO DAILY 07/08/21 01/15/22 History capsule ( DHA) fluticasone propionate 50 1 spray intranasal DAILY 07/08/21 01/08/22 History mcg/actuation nasal spray,suspension (Allergy Relief (fluticasone)) calcium carbonate 600 mg-vitamin 1 tablet PO DAILY 08/24/21 01/15/22 History D3 20 mcg (800 unit) chewable tablet (Caltrate 600 plus D) ferrous sulfate 325 mg (65 mg 325 mg PO BID #180 tabs 11/30/21 01/15/22 Rx iron) tablet (Feosol) Allergies Allergy/AdvReac Type Severity Reaction Status Date / Time No Known Allergies Allergy Mild Verified 01/14/22 14:49 Exam Const: General: no acute distress Eyes: General: appearance normal, both eyes and all related structures Neck: Neck: normal visual inspection Resp: Effort & Inspection: normal respiratory effort Cardio: Rate: regular rate Rhythm: regular rhythm GI: Other: Gravid no fundal tenderness no right upper quadrant pain : Other: gravid no RUQ pain Skin: General skin exam: no rashes o
--- NOTE | 2022-01-15 10:21 | WPDANESEPP ---
Anes - Eval Pre Procedure Procedure: Operation Date: 01/15/22 10:30 Proposed Procedures p Section / Twins - Ran Yao MD Date/Time: 01/15/22 10:21 Surgeon: gui Preop Diagnosis: twinss Pre Op Diagnosis: Patient Data Age: 26 Gender: F Height: 1.57 m Weight: 124 kg Last Vital Signs O2 Del Method Room Air 01/15/22 10:10 Allergies Allergy/AdvReac Type Severity Reaction Status Date / Time No Known Allergies Allergy Mild Verified 01/14/22 14:49 Home Medications Medication Instructions Recorded Confirmed Type cetirizine 10 mg tablet (Zyrtec) 10 mg PO DAILY 08/28/19 01/15/22 History levetiracetam 1,000 mg tablet 1,000 mg PO BID 08/28/19 01/15/22 History (Keppra) docosahexaenoic acid 200 mg 200 mg PO DAILY 07/08/21 01/15/22 History capsule ( DHA) fluticasone propionate 50 1 spray intranasal DAILY 07/08/21 01/08/22 History mcg/actuation nasal spray,suspension (Allergy Relief (fluticasone)) calcium carbonate 600 mg-vitamin 1 tablet PO DAILY 08/24/21 01/15/22 History D3 20 mcg (800 unit) chewable tablet (Caltrate 600 plus D) ferrous sulfate 325 mg (65 mg 325 mg PO BID #180 tabs 11/30/21 01/15/22 Rx iron) tablet (Feosol) Laboratory Tests 01/15/22 01/15/22 09:09 09:09 RPR Pending HIV 1&2 Ab/P24 Ag 4thGn Pending Patient hx anesthesia problems: none Family hx anesthesia problems: none Results Review: All pre-operative results and documents have been reviewed as part of the pre-operative evaluation. [facility] Past Medical History Medical History Epilepsy GERD (gastroesophageal reflux disease) Obesity Vaginal delivery x1 Surgical History Surgical History [place] teeth extracted 2013 Family History Family History Mother Infertility Hypertension Grandparent Diabetes mellitus Grandparent Leukemia Father Heart disease has aortic valve stenosis (replacement 01/2018) Social History Social History Smoking status: Never smoker Second hand tobacco smoke exposure: No Alcohol intake: current Substance use: never Gender identity (if verbalized by the patient): Female Spiritual care concerns: No Agree to blood products: Yes Exam Day of Procedure 01/15/22 10:21
[2022-01-15 10:49] LABS: HIV 1/2 Ab P24 Ag Result Negative (Negative)
[2022-01-15] MEDS: LACTATED RINGERS 1,000 ML 125 ML IV CONT (11:02)
--- NOTE | 2022-01-15 11:08 | WPDANESEPPF ---
Anes - Initial Pre Proc Eval Procedure: Operation Date: 01/15/22 10:30 Proposed Procedures p Section / Twins - Ran Yao MD Date/Time: 01/15/22 11:08 Surgeon: Ran Yao MD Pre Op Diagnosis: Patient Data Age: 26 Gender: F Height: 1.57 m Weight: 124 kg Last Vital Signs O2 Del Method Room Air 01/15/22 10:10 Allergies Allergy/AdvReac Type Severity Reaction Status Date / Time No Known Allergies Allergy Mild Verified 01/14/22 14:49 Home Medications Medication Instructions Recorded Confirmed Type cetirizine 10 mg tablet (Zyrtec) 10 mg PO DAILY 08/28/19 01/15/22 History levetiracetam 1,000 mg tablet 1,000 mg PO BID 08/28/19 01/15/22 History (Keppra) docosahexaenoic acid 200 mg 200 mg PO DAILY 07/08/21 01/15/22 History capsule ( DHA) fluticasone propionate 50 1 spray intranasal DAILY 07/08/21 01/08/22 History mcg/actuation nasal spray,suspension (Allergy Relief (fluticasone)) calcium carbonate 600 mg-vitamin 1 tablet PO DAILY 08/24/21 01/15/22 History D3 20 mcg (800 unit) chewable tablet (Caltrate 600 plus D) ferrous sulfate 325 mg (65 mg 325 mg PO BID #180 tabs 11/30/21 01/15/22 Rx iron) tablet (Feosol) Laboratory Tests 01/15/22 01/15/22 09:09 09:09 RPR Pending HIV 1&2 Ab/P24 Ag 4thGn Negative (Negative) Patient hx anesthesia problems: none Family hx anesthesia problems: none Results Review: All pre-operative results and documents have been reviewed as part of the pre-operative evaluation. [facility] Past Medical History Medical History Epilepsy GERD (gastroesophageal reflux disease) Obesity Vaginal delivery x1 Surgical History Surgical History [place] teeth extracted 2013 Family History Family History Mother Infertility Hypertension Grandparent Diabetes mellitus Grandparent Leukemia Father Heart disease has aortic valve stenosis (replacement 01/2018) Social History Social History Smoking status: Never smoker Second hand tobacco smoke exposure: No Alcohol intake: current Substance use: never Gender identity (if verbalized by the patient): Female Spiritual care concerns: No Agree to blood products: Yes Anes - Eval Final PreProcedure Day of Procedure 01/15/22 11:08 Patient weight: obese Heart: regular rate and rhythm Lungs: clear to auscultation Airway: Mallampati scale class II Neurological: alert and oriented Last oral intake: >/= 8 hours ASA classification: III Emergent: no Anesthetic plan: proceed Anesthesia type and monitoring: regional spinal and standard monitoring Results Review: All pre-operative results and documents have been reviewed as part of the pre-operative evaluation. Informed Consent: The patient's anesthetic plan and its attendant risks and benefits were discussed with the patient/family/POA. Questions were solicited and answers provided to the satisfaction of the patient/family/POA.
--- NOTE | 2022-01-15 11:33 | WPDHPUPDATE1 ---
History and Physical Update Update Date/Time: 01/15/22 11:33 History and Physical has been reviewed, including an updated exam of the patient. There are NO changes in the patient's condition. Risks, benefits, and alternatives have been discussed and questions answered. Patient agrees to proceed with procedure.
[2022-01-15] MEDS: LACTATED RINGERS 1,000 ML 999 ML IV CONT (11:35)
[2022-01-15] MEDS: ceFAZolin 3 GM/D5W 100 ML 100 ML IVPB (12:15)
--- NOTE | 2022-01-15 13:25 | P.OPB_ITS ---
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
--- NOTE | 2022-01-15 15:33 | W.PM.PROC2 ---
Procedure Note - Detailed Date of Procedure 01/15/22 Pre-op Diagnosis Nonvertex twin gestation Gregg/diamniotic twin gestation IUGR twin A Polyhydramnios with both twins Seizure disorder Pyelectasis twin A Post-op Diagnosis Same Procedure Performed Primary low transverse section Surgeon Ran Yao MD [employer] Efrain Anesthesia Spinal Indications Gregg/di twin gestation, nonvertex twin A, with IUGR twin A, polyhydramnios, >20% weight discordance, intermittent abnormal doppler studies. [facility] recommendation for delivery between 34-35 6/7 weeks. Findings Twin A transverse position, Twin B breech, Twin B with loose nuchal cord x 2, normal fallopian tubes and ovaries bilaterally. Description of Procedure After informed consent, risks and benefits of the procedure was discussed with the patient. The patient was taken to the operating room. Spinal anesthesia block was performed. She was placed in the dorsal lithotomy position with leftward tilt. heart tones were 133, 136 twin A,B. She was prepped and draped in sterile fashion. A Pfannenstiel skin incision was made with a scalpel and carried through to the underlying layer of fascia. The fascia was then nicked in the midline, extending bilaterally. The fascia was dissected off the rectus muscles bluntly and sharply, superiorly and inferiorly. The rectus muscles were in the midline, and peritoneum was identified and entered bluntly. The pelvic organs were visualized. The bladder blade was then inserted. The vesicouterine peritoneum was identified and entered sharply with Metzenbaum scissors and extended bilaterally and then the bladder flap was created digitally. The low transverse uterine incision was then made with the scalpel and extended with bilateral index fingers in a crescent-shaped fashion. The amniotic sac of twin a was visualized and was entered sharply. Twin a position was palpated and noted to be transverse back down. The buttocks was palpated the buttocks was delivered and the legs were flexed and delivered the arms were delivered in the flexed position and the head was delivered in a flexed position. The cord was doubly clamped and cut the nose and mouth were suctioned with the bulb prior to this cord was doubly clamped and cut and infant was handed to nursery staff in attendance. A curved clamp was placed on the cord. Attention was then turned to the sac of twin B the sac was entered with a clamp. Large amount of fluid was noted upon entry in both amniotic sacs. She the 's feet were palpated and the feet were delivered the buttocks where it is then delivered and the arms were delivered in a Pinard fashion. The head was flexed and was delivered there was noted to be 2 loose nuchal cords which were manually reduced the cords were then clamped x2 with straight clamps and then cut the was handed to the nursery staff in attendance. Cord segments and cord blood from both cords were then obtained. The placenta was delivered manually. The uterus was then exteriorized. the uterine cavity was sponge curetted. There was noted to be good tone of the uterus. There was some intermittent bogginess of the lower uterine segment and anesthesia was instructed to give 0.2 mg of Methergine was given IM. The uterine incision was then closed with 0 vicryl in a running locked fashion. Hemostasis noted. A second layer of 0 vicryl was used in an imbricating fashion. Hemostasis was noted. the posterior cul-de-sac was irrigated. The uterus was then returned to the abdomen. Bilateral gutters were cleared off all clots and debris. The uterine incision was noted to be hemostatic. Interceed placed on uterine incision and vertically on front of uterus. The muscle bellies were inspected and noted to be hemostatic. The subfascial layer was noted to be hemostatic, and the fascia was closed with two sutures of 0 Vicryl in a running fashion. The subcutaneous layer was then irrig
--- NOTE | 2022-01-15 16:16 | OBPPTRN ---
1550 Patient transferred to post room #277 via stretcher. Support person present. Oriented to unit, room, information board, rooming in, admission packet and security measures. Patient verbalizes understanding.
[2022-01-15 16:51] LABS: Rapid Plasma Reagin Non-Reactive (NonReactive)
[2022-01-15] MEDS: IBUPROFEN 600 MG TABLET PO (19:49)
[2022-01-15] MEDS: DOCUSATE SODIUM 100 MG CAPSULE PO (19:49)
[2022-01-16 01:00] VITALS: BP 123/74; PULSE 80; RESP 18; TEMP 36; O2SAT 98
[2022-01-16] MEDS: ACETAMINOPHEN 325 MG TABLET 650 MG PO (01:11)
[2022-01-16] MEDS: levETIRAcetam 500 MG TABLET 1000 MG PO ×3 (02:18→21:04)
[2022-01-16 05:00] VITALS: BP 119/76; PULSE 84; RESP 16; TEMP 36.2; O2SAT 100
[2022-01-16 05:50] LABS: Basophils Percent Auto 0.1 % (0.2-1.2); Eosinophils Percent Auto 0.4 % (0-4.4); Hematocrit 32.6 % (37.0-47.0); Hemoglobin 10.2 g/dL (12.0-15.0); Immature Granulocyte Absolute 0.05 K/mm3 (0.00-0.031); Immature Granulocyte Percent A 0.5 % (0-0.5); Lymphocytes Absolute Auto 2.21 K/mm3 (0.9-3.2); Lymphocytes Percent Auto 21.8 % (18.3-44.2); Mean Corpuscular HGB Conc 31.3 g/dl (32-36); Mean Corpuscular Hemoglobin 28.4 pg (26-34); Mean Corpuscular Volume 90.8 fl (80-100); Mean Platelet Volume 12.6 fl (7.4-10.4); Monocytes Absolute Auto 0.6 K/mm3 (0.1-0.6); Monocytes Percent Auto 6.2 % (2.6-8.5); Neutrophils Absolute Auto 7.2 K/mm3 (1.3-6.7); Platelet Count Result 139 k/mm3 (150-375); Red Blood Count 3.59 M/mm3 (4.2-5.4); White Blood Count 10.1 K/mm3 (4.5-10.0)
[2022-01-16] MEDS: MULTIVIT/MIN/PREN/FOL AC/IRON TABLET 1 TAB PO (07:42)
[2022-01-16] MEDS: DOCUSATE SODIUM 100 MG CAPSULE PO ×2 (07:42→15:28)
[2022-01-16] MEDS: IBUPROFEN 600 MG TABLET PO ×2 (07:43→21:05)
[2022-01-16 07:51] VITALS: BP 139/71; PULSE 91; RESP 16; TEMP 36.2; O2SAT 100
--- NOTE | 2022-01-16 07:52 | P.PNOB_ITS ---
OB - PN: Subj Subjective Date/time seen: 01/16/22 07:52 Interval history: She has adequate pain control, has sat up in chair, has not ambulated. No leg pain. No chest pain or SOB. The babies were transferred and are doing well. Lochia mild from what she can tell. No flatus. Tolerated liquids. OB - PN: Obj Data Labs CBC & Chem 7: 01/16/22 05:00 Labs: Laboratory Results - last 24 hr 01/15/22 01/15/22 01/16/22 09:09 09:09 05:00 WBC 10.1 H RBC 3.59 L Hgb 10.2 L Hct 32.6 L MCV 90.8 MCH 28.4 MCHC 31.3 L RDW 21.0 H Plt Count 139 L MPV 12.6 H Immature Gran % (Auto) 0.5 Neut % (Auto) 71.0 Lymph % (Auto) 21.8 [place] % (Auto) 6.2 Eos % (Auto) 0.4 Baso % (Auto) 0.1 L Lymph # (Auto) 2.21 [place] # (Auto) 0.6 Eos # (Auto) 0.0 Baso # (Auto) 0.0 Abs Immat Gran (auto) 0.05 H Absolute Neuts (auto) 7.2 H Absolute Nucleated RBC 0.0 Nucleated RBC % 0.0 RPR Non-reactive HIV 1&2 Ab/P24 Ag 4thGn Negative OB - PN A/P Assessment and Plan (1) Delivery by section: Status: Acute Plan POD1 s/p primary csection for tr/br twins. She is doing well. Will allow 6 hour pass for her to see the baby later this afternoon. Time Spent With Patient Time: Total time spent is greater than 50% in coordination of care (as documented) at patient's floor/unit and/or counseling patient: Exam Const: General: comfortable and no acute distress Resp: Effort & Inspection: normal respiratory effort Auscultation: clear to auscultation bilaterally Cardio: Rate: regular rate Rhythm: regular rhythm GI: Inspection: normal to inspection Other: decreased bowel sounds present, incision clean dry intact Extrem: Right lower extremity: normal to inspection Left lower extremity: edema (no calf tenderness) Details: 2+ Psych: Mental Status: mental status grossly normal Affect: normal affect
--- NOTE | 2022-01-16 10:05 | WPDANLDNPN2 ---
Anes-Prog Note L&D-Neuraxial Date/Time: 01/16/22 10:05 Patient feedback: Patient satisfied with post-operative pain management.
--- NOTE | 2022-01-16 10:05 | WPDANLDPN2 ---
Anes-Prog Note L&D Date/Time: 01/16/22 10:05 Neuro status: Neuro function grossly intact. Vital Signs: Last Vital Signs Temp 36.2 C L 01/16/22 07:51 Pulse 91 01/16/22 07:51 Resp 16 01/16/22 07:51 BP 139/71 01/16/22 07:51 Pulse Ox 100 01/16/22 07:51 O2 Del Method Room Air 01/16/22 08:00 Pain score (VAS): 0 I/O: Intake & Output 01/15/22 01/16/22 01/16/22 23:59 07:59 15:59 Intake Total 1000 1500 Output Total 200 2050 Balance 800 -550 Patient feedback: Patient satisfied with anesthetic care.
[2022-01-16] MEDS: oxyCODONE/ACETAMINOPHEN (*CRX) 5-325 MG TABLET 1 TABLET PO ×4 (10:25→23:47)
[2022-01-16 12:15] VITALS: BP 124/74; PULSE 100; RESP 18; TEMP 36; O2SAT 100
[2022-01-16 15:32] VITALS: BP 135/82; PULSE 100; RESP 18; TEMP 36.3; O2SAT 100
[2022-01-16 20:00] VITALS: BP 133/71; PULSE 104; RESP 16; TEMP 36.6; O2SAT 100
[2022-01-16] MEDS: SIMETHICONE 80 MG TAB.CHEW PO (23:05)
[2022-01-17] MEDS: SIMETHICONE 80 MG TAB.CHEW PO ×7 (04:38→23:47)
[2022-01-17] MEDS: oxyCODONE/ACETAMINOPHEN (*CRX) 5-325 MG TABLET 1 TABLET PO ×5 (04:38→23:47)
[2022-01-17] MEDS: IBUPROFEN 600 MG TABLET PO ×3 (04:38→19:10)
[2022-01-17 07:15] VITALS: BP 145/85; PULSE 99; RESP 18; TEMP 36.6; O2SAT 100
[2022-01-17] MEDS: DOCUSATE SODIUM 100 MG CAPSULE PO ×2 (07:32→16:17)
[2022-01-17] MEDS: levETIRAcetam 500 MG TABLET 1000 MG PO ×2 (07:32→21:14)
[2022-01-17] MEDS: MULTIVIT/MIN/PREN/FOL AC/IRON TABLET 1 TAB PO (07:34)
[2022-01-17 10:50] VITALS: BP 145/88
--- NOTE | 2022-01-17 11:10 | PM.OBPNVD ---
OB - PN: Subj Subjective Date/time seen: 01/17/22 11:10 Interval history: She has adequate pain control, has sat up in chair, has not ambulated much, mostly sat up in chair. No leg pain. No chest pain or SOB. The babies were transferred and are doing well. Lochia mild from what she can tell. No flatus. Tolerated reg food. Positive flatus. No BM. Denies headache, scotomata or RUQ pain. OB - PN: Obj Data Labs CBC & Chem 7: 01/16/22 05:00 OB - PN A/P Assessment and Plan (1) Delivery by section: Status: Acute Assessment and Plan: POD2 s/p primary section. Labile elevated blood pressures. No pre- e symptoms. Will continue to monitor. Time Spent With Patient Time: Total time spent is greater than 50% in coordination of care (as documented) at patient's floor/unit and/or counseling patient: Exam Const: General: comfortable and no acute distress Eyes: General: appearance normal, both eyes and all related structures Resp: Effort & Inspection: normal respiratory effort GI: Inspection: normal to inspection Other: no RUQ pain, incision intact, no drainage or erythema fundus at umbilicus nontender Extrem: General: no calf tenderness (2+ edema bilat nontender )
[2022-01-17 12:00] VITALS: BP 138/86; PULSE 110; RESP 18; TEMP 36.8; O2SAT 100
[2022-01-17 16:00] VITALS: BP 140/96; PULSE 104; RESP 18; TEMP 36.9; O2SAT 100
[2022-01-17 20:00] VITALS: BP 138/90; PULSE 98; RESP 18; TEMP 36.7
[2022-01-18] VITALS: BP 147/89; PULSE 100; RESP 18; TEMP 36.8
[2022-01-18 04:00] VITALS: BP 141/92; PULSE 98; RESP 20; TEMP 36.7
[2022-01-18] MEDS: oxyCODONE/ACETAMINOPHEN (*CRX) 5-325 MG TABLET 1 TABLET PO (04:56)
[2022-01-18] MEDS: SIMETHICONE 80 MG TAB.CHEW PO ×2 (04:56→07:55)
[2022-01-18] MEDS: IBUPROFEN 600 MG TABLET PO (04:58)
[2022-01-18] MEDS: DOCUSATE SODIUM 100 MG CAPSULE PO (07:53)
[2022-01-18] MEDS: MULTIVIT/MIN/PREN/FOL AC/IRON TABLET 1 TAB PO (07:55)
[2022-01-18] MEDS: levETIRAcetam 500 MG TABLET 1000 MG PO (07:55)
[2022-01-18 08:40] VITALS: BP 139/81; PULSE 102; RESP 18; TEMP 37; O2SAT 100
[2022-01-21 10:20] VITALS: BP 149/83; PULSE 93; RESP 20; TEMP 36.8; O2SAT 99
--- NOTE | 2022-02-15 10:46 | PM.OBDSVD ---
DS: Admitting Diagnosis Discharge Date 01/18/22 Admitting Diagnosis [place] DI twin gestation non vertex twin A Intrauterine growth restriction Polyhydramnios DS: Discharge Diagnosis Discharge Diagnosis (1) Polyhydramnios affecting in third trimester: Code(s): O40.3XX0 - Polyhydramnios, third trimester, not applicable or unspecified Status: Acute (2) IUGR (intrauterine growth restriction): Status: Acute (3) Monochorionic diamniotic twin : Code(s): O30.039 - Twin , monochorionic/diamniotic, unspecified trimester Status: Acute (4) Twin gestation in second trimester: Code(s): O30.002 - Twin , unspecified number of placenta and unspecified number of amniotic sacs, second trimester Status: Acute OB - DS: Summary Hospital Course Hospital Course: patient was admitted for a scheduled due to intrauterine growth restriction polyhydramnios and intermittent surveillance testing the twin a was not in vertex presentation. She underwent an uncomplicated primary section. Post she did well. On post opt a 1. She had adequate pain control. She was encouraged to ambulate. on postop day 2 she did start ambulating better she was tolerating regular food and had positive flatus. She was ambulating. She is doing well. She was discharged home on post of day 3. OB Procedures : NST and Ultrasound OB Procedures Intrapartum: OB Procedures: : None Peripartum Data Delivery Method: Section Episiotomy description: None Procedures: Procedures Operation Date: 01/15/22 10:30 Actual Procedure Side Surgeon p Section / Twins Bilateral Ran Yao MD complications: none Status at Discharge Functional status at discharge: independent ambulation Overall status at discharge: other (Recovery) Time Spent with Patient Time attestation: Total time spent providing and/or coordinating discharge services: Time spent: Less than 30 minutes Exam Const: General: cooperative Orientation/consciousness: oriented to person, oriented to place and oriented to time HENMT: Face/Nose/Sinus: Normal external nose present Eyes: General: appearance normal, both eyes and all related structures Resp: Effort & Inspection: normal respiratory effort GI: Inspection: normal to inspection Other: Incision healing well Skin: General skin exam: normal color Neuro: General: oriented to person, oriented to place and oriented to time Extrem: General: normal to inspection and no calf tenderness Psych: Appearance: grossly normal Mental Status: mental status grossly normal DS: Data Data Completed and Pending Completed studies during hospitalization: Pending at discharge 01/15/22 14:11 Surgical [PTH] Routine Discharge Plan Discharge Attending physician on discharge: Ran Yao Consulting providers: Andreea Oconnor ; Cecilia Phillips ; Luigi Hills Discharging Clinician: Ran Yao Anticipated Discharge Date/Time: 01/18/22 11:04 Patient Disposition: Home, Self-Care Activity: may shower, no straining, no driving and pelvic rest Diet: regular Discharge Instructions: Education: Mom and Baby Guide Given to: Mother Follow-Up: Call your delivering provider's office for an appointment to be seen in: 4 Weeks Mom and baby should come to the [facility] for the follow-up appointment. Appointment Date/Time: January 21, 2022 at 10:00 am What to expect at your follow-up visit: Blood Pressure Check Physical Assessment Call [phone] if you are unable to keep your appointment time. BREAST CARE: * Wear a snug supportive bra. * For engorgement discomfort: Breast Feeding: * Apply warm moist washcloths * Express milk as needed to relieve engorgement * Wear loose clothing Bottle Feeding:
== END 2022-01-18 11:53 | disposition home or self-care (01) | DRG 787 ==
LOC: ANHLDR 08:48 → ANHOB2 16:09
PROVIDERS: Admitting Provider Obstetrics & Gynecology; PCP Family Medicine; Visit Provider Obstetrics & Gynecology
PROC: 10D00Z1 Extraction of Products of Conception, Low, Open Approach (ICD-10-PCS; CPT 59514; principal; 2022-01-15 10:30)
DX: O30.033 Twin pregnancy, monochorionic/diamniotic, third trimester (principal); N13.30 Unspecified hydronephrosis; O99.354 Diseases of the nervous system complicating childbirth; O36.5931 Maternal care for other known or suspected poor fetal growth, third trimester, fetus 1; Z3A.35 35 weeks gestation of pregnancy; Z37.2 Twins, both liveborn; O99.824 Streptococcus B carrier state complicating childbirth; O40.3XX0 Polyhydramnios, third trimester, not applicable or unspecified; O99.892 Other specified diseases and conditions complicating childbirth; O32.1XX2 Maternal care for breech presentation, fetus 2; O69.81X2 Labor and delivery complicated by cord around neck, without compression, fetus 2; G40.909 Epilepsy, unspecified, not intractable, without status epilepticus; O32.2XX1 Maternal care for transverse and oblique lie, fetus 1
CPT/HCPCS: 36415; 85025; 86592; 86703; 88307; A9270; G0432; J0131; J0690; J1100; J2210; J2274; J2405; J2590; J7120

== ENCOUNTER 2022-07-08 14:44 | Outpatient (CLI) | payer BC, SELFPAY ==
--- NOTE | ~2022-07-08 | US_ITS ---
EXAMINATION: US thyroid DATE: 07/08/2022 15:21 INDICATION: Nontoxic goiter, unspecified. TECHNIQUE: Multiple ultrasound images of the thyroid were obtained. COMPARISON: Ultrasound 10/18/2017 FINDINGS: The right thyroid lobe measures 5.2 x 1.7 x 1.8 cm. The left thyroid lobe measures 5.8 x 1.5 x 2.0 c m. There are multiple nodules in the thyroid, most of which measure less than 5 mm. In the right thy roid lobe, there is a 7 mm solid, very hyperechoic, wider than tall nodule with smooth margin without echogenic foci (TI-RADS TR4). In the left thyroid lobe, there is a 6 mm cystic nodule (TR1). IMPRESSION: 1. Small thyroid nodules, likely not clinically significant. No follow-up is needed. Reviewed, dictated and finalized at location A. FICATION OPERATOR HELPER IMPRESSION: 1. Small thyroid nodules, likely not clinically significant. No follow-up is ne eded.
[2022-07-08 15:57] LABS: T4 Thyroxine 7.04 ug/dL (5.53-11.0)
== END 2022-07-08 14:45 | disposition home or self-care (01) ==
PROVIDERS: PCP Family Medicine; Visit Provider Obstetrics & Gynecology
DX: E04.2 Nontoxic multinodular goiter (principal)
CPT/HCPCS: 36415; 76536; 84436; 84443

== ENCOUNTER 2022-09-27 09:26 | Outpatient (CLI) | payer BC, SELFPAY ==
[2022-09-27 10:24] LABS: Basophils Percent Auto 0.3 % (0.2-1.2); Eosinophils Absolute Auto 0.1 K/mm3 (0-0.3); Eosinophils Percent Auto 1.9 % (0-4.4); Hematocrit 42.3 % (37.0-47.0); Hemoglobin 12.7 g/dL (12.0-15.0); Immature Granulocyte Absolute 0.01 K/mm3 (0.00-0.031); Immature Granulocyte Percent A 0.2 % (0-0.5); Lymphocytes Percent Auto 49.2 % (18.3-44.2); Mean Corpuscular Hemoglobin 25.7 pg (26-34); Mean Corpuscular Volume 85.5 fl (80-100); Mean Platelet Volume 11.6 fl (7.4-10.4); Monocytes Absolute Auto 0.3 K/mm3 (0.1-0.6); Monocytes Percent Auto 5.8 % (2.6-8.5); Neutrophils Absolute Auto 2.5 K/mm3 (1.3-6.7); Neutrophils Percent Auto 42.6 % (45.5-73.1); Platelet Count Result 211 k/mm3 (150-375); Red Blood Count 4.95 M/mm3 (4.2-5.4); Red Cell Distribution Width 15.5 % (11.5-14.5); White Blood Count 5.9 K/mm3 (4.5-10.0)
[2022-09-27 10:25] LABS: Alanine Aminotransferase 39 U/L (6-35); Albumin Level 4.4 g/dL (3.5-5.1); Alkaline Phosphatase 106 U/L (38-126); Anion Gap 5 mmol/L (8-16); Aspartate Amino Transferase 27 U/L (14-36); Bilirubin,Total 0.5 mg/dL (0.2-1.3); Blood Urea Nitrogen 15 mg/dL (7-17); Calcium 8.5 mg/dL (8.4-10.2); Carbon Dioxide 28 mmol/L (22-30); Chloride 102 mmol/L (98-107); Cholesterol 180 mg/dL (0-200); Estimated Glomerular Filt Rate > 60; Glucose 75 mg/dL (65-110); HDL Direct 60 mg/dL; Potassium 4.4 mmol/L (3.4-5.0); Sodium 135 mmol/L (137-145); Triglycerides 65 mg/dL (<150)
[2022-09-27 10:38] LABS: LDL Cholesterol Direct 90 mg/dL
[2022-09-27 10:39] LABS: Appearance Urine Clear (Clear); Bilirubin Urine Negative (Negative); Blood Urine Negative (Negative); Color Urine Yellow (Yellow); Glucose Urine UA Negative (Negative); Ketones Urine Negative (Negative); Leukocyte Esterase Ur Negative LEU/UL (Negative); Nitrate Urine Negative (Negative); Protein Urine Negative (Negative); Specific Grav Ur 1.003 (1.001-1.035); Urobilinogen Urine 0.2 mg/dL (<2.0); pH Urine 6.5 (5.0-9.0)
[2022-09-27 10:41] LABS: Hemoglobin A1C 4.9 % (<5.7)
[2022-09-27 10:53] LABS: Thyroid Stimulating Hormone 0.967 uIU/mL (0.465-4.680)
[2022-09-27 11:01] LABS: Add Urine Microscopic? NO
[2022-09-27 11:16] LABS: Free T4 Free Thyroxine 0.93 ng/mL (0.78-2.19); Vitamin D 25 Hydroxy 30.8 ng/mL
== END 2022-09-27 09:27 | disposition home or self-care (01) ==
LOC: ANHLAB 09:29
PROVIDERS: PCP Family Medicine; Visit Provider Family Medicine
DX: Z00.00 Encounter for general adult medical examination without abnormal findings (principal); E66.9 Obesity, unspecified; Z13.9 Encounter for screening, unspecified
CPT/HCPCS: 36415; 80053; 80061; 81003; 82306; 83036; 84439; 84443; 85025

== ENCOUNTER 2023-10-13 09:33 | Outpatient (CLI) | payer BC, SELFPAY ==
[2023-10-13 10:24] LABS: Basophils Percent Auto 0.4 % (0.2-1.2); Eosinophils Absolute Auto 0.1 K/mm3 (0-0.3); Eosinophils Percent Auto 1.8 % (0-4.4); Hematocrit 42.7 % (37.0-47.0); Hemoglobin 13.4 g/dL (12.0-15.0); Immature Granulocyte Absolute 0.02 K/mm3 (0.00-0.031); Immature Granulocyte Percent A 0.3 % (0-0.5); Lymphocytes Absolute Auto 2.45 K/mm3 (0.9-3.2); Lymphocytes Percent Auto 31.9 % (18.3-44.2); Mean Corpuscular HGB Conc 31.4 g/dl (32-36); Mean Corpuscular Hemoglobin 27.1 pg (26-34); Mean Corpuscular Volume 86.4 fl (80-100); Mean Platelet Volume 11.8 fl (7.4-10.4); Monocytes Absolute Auto 0.3 K/mm3 (0.1-0.6); Monocytes Percent Auto 4.4 % (2.6-8.5); Neutrophils Absolute Auto 4.7 K/mm3 (1.3-6.7); Neutrophils Percent Auto 61.2 % (45.5-73.1); Platelet Count Result 202 k/mm3 (150-375); Red Blood Count 4.94 M/mm3 (4.2-5.4); Red Cell Distribution Width 14.1 % (11.5-14.5); White Blood Count 7.7 K/mm3 (4.5-10.0)
[2023-10-13 10:47] LABS: Appearance Urine Clear (Clear); Bacteria Urine None Seen /hpf; Bilirubin Urine Negative (Negative); Blood Urine 1+ (Negative); Color Urine Yellow (Yellow); Glucose Urine UA Negative (Negative); Ketones Urine Negative (Negative); Leukocyte Esterase Ur Negative LEU/UL (Negative); Need Manual Microscopic Reviewed; Nitrate Urine Negative (Negative); Non Pathogenic Casts 0-2; Protein Urine Negative (Negative); RBC Urine 0-2 /hpf (0-2); Squamous Epithelial Cell Urine None Seen /hpf (Few); Urobilinogen Urine 0.2 mg/dL (<2.0); WBC Urine 0-5 /hpf (0-3); pH Urine 6.5 (5.0-9.0)
[2023-10-13 10:52] LABS: Add Urine Microscopic? YES; Specific Grav Ur 1.002 (1.001-1.035)
[2023-10-13 12:05] LABS: Alanine Aminotransferase 25 U/L (6-35); Albumin Level 4.5 g/dL (3.5-5.1); Alkaline Phosphatase 111 U/L (38-126); Anion Gap 6 mmol/L (4-12); Aspartate Amino Transferase 25 U/L (14-36); Bilirubin,Total 0.6 mg/dL (0.2-1.3); Blood Urea Nitrogen 10 mg/dL (7-17); Calcium 9.2 mg/dL (8.4-10.2); Carbon Dioxide 27 mmol/L (22-30); Chloride 104 mmol/L (98-107); Cholesterol 164 mg/dL (0-200); Estimated Glomerular Filt Rate > 60; Glucose 83 mg/dL (65-110); HDL Direct 42 mg/dL; Potassium 4.1 mmol/L (3.4-5.0); Sodium 137 mmol/L (137-145); Triglycerides 98 mg/dL (<150)
[2023-10-13 12:16] LABS: LDL Cholesterol Direct 96 mg/dL
[2023-10-13 13:55] LABS: Vitamin D 25 Hydroxy 50.7 ng/mL
[2023-10-13 14:08] LABS: Thyroid Stimulating Hormone Reflex 0.618 uIU/mL (0.465-4.68)
[2023-10-14 02:59] LABS: Hemoglobin A1C 4.8 % (<5.7)
== END 2023-10-13 09:34 | disposition home or self-care (01) ==
LOC: ANHLAB 09:35
PROVIDERS: PCP Family Medicine; Visit Provider Family Medicine
DX: Z00.00 Encounter for general adult medical examination without abnormal findings (principal); E66.9 Obesity, unspecified; E55.9 Vitamin D deficiency, unspecified
CPT/HCPCS: 36415; 80053; 80061; 81001; 82306; 83036; 84443; 85025; 87088

== ENCOUNTER 2025-01-12 08:56 | Outpatient (CLI) | payer BC, SELFPAY ==
--- OUTSIDE RECORDS SUMMARY | 2025-01-12 09:00 | XMS_ITS | Clinical Summary ---
Author Organization [facility] Address [address] [place] [address] Care Team Providers Care Certified Composites Technician Name Role Phone Dwayne Tejada Primary Care Provider Unavailab Parth Elmore MD Unavailable [phone] Source Comments [facility],non-owned Affiliates and Associated Physician Practices is amultiple site organization consisting of ambulatory clinics and hospital sitesin [place], [place], [place] and [place]. This disclosure is being madepursuant to the Care Everywhere program and may not contain all information available regarding this patient. Last updated 18.[facility] Allergies Active Allergy Reactions Criticality Noted Date Comments Pollen Extract Rhinitis Low 03/05/2019 Medications * Be aware that medications may not be up to date on this document. Alwaysverify current medications with the patient. cetirizine (ZYRTEC) 10 MG tablet Take 1 (one) tablet by mouth once daily Active vitamin D3 (VITAMIN D HIGH POTENCY) 1000 UNIT capsule Take 1 (one) capsule by mouth 2 times daily Active levETIRAcetam (KEPPRA) 500 MG tablet Take 2 Tabs by mouth 2 times daily. Make f/u appt. [phone]. 360 Tab 0 5 Active busPIRone (Buspar) 10 MG tablet Take 1 (one) tablet by mouth as needed 5 Active ketoconazole (Nizoral) 2 % shampoo Active Zepbound 10 MG/0.5ML injection ADMINISTER 10 MG UNDER THE SKIN EVERY WEEK DIRECTED 5 Active escitalopram (Lexapro) 10 MG tablet Take 1 (one) tablet by mouth once daily Active multivitamin daily tablet Take 1 (one) tablet by mouth daily with food Active Active Problems Problem Noted Date Diagnosed Date Epilepsy with generalized to jhonatan clonic seizures on awakening 04/18/2013 Overview (04/18/2013): epilepsy syndrome: Generalized seizures upon awakening intractable (Y/N): N Last Discussion of Intractability: onset (y/o): etiology: genetic Family History: neuroimaging summary: EEG summary: Nl 10/2010 seizure types: tonic-clonic anticonvulsant comments: LVT successful Family History Relation Name Status Comments Brother Alive Father Alive Mother Alive Sister Alive Social History Tobacco Use Types Packs/Day Years Used Date Smoking Tobacco: Never Smokeless Tobacco: Never Alcohol Use Standard Drinks/Week Comments Yes 0 (1 standard drink = 0.6 oz pur e alcohol) social PHQ-2 Answer Date Recorded Patient Health Questionnaire-2 Score 1 07/25/2024 Comments No Sex and Gender Information Value Date Recorded Sex Assigned at Not on file Legal Sex Female 11:42 AM COPY CHIEF Gender Identity Not on file Sexual Orientation Not on file Last Filed Vital Signs Vital Sign Reading Time Taken Comments Blood Pressure 112/79 07/25/2024 8:36 AM CDT Pulse 69 07/25/2024 8:36 AM CDT Temperature 36.7 C (98.1 F) 07/25/2024 8:36 AM CDT Respiratory Rate - - Oxygen Saturation 99% 07/25/2024 8:36 AM CDT Inhaled Oxygen Concentration - - Weight 87.1 kg (192 lb) 07/25/2024 8:36 AM CDT Height 157.5 cm (5' 2) 07/25/2024 8:36 AM CDT Body Mass Index 35.12 07/25/2024 8:36 AM CDT Plan of Treatment Health Maintenance Due Date Last Done Comments HIV SCREENING 2008 HEPATITIS C SCREENING 02/25/2011 DTAP/TDAP/TD VACCINES (1 - Tdap) 2012 HEPATITIS B VACCINE (1 of 3 - 19+ 3-dose series) 2012 PAP SMEAR 2014 HPV VACCINE (1 - 3-dose SCDM series) 2020 COVID-19 VACCINE (1 - 2023-2 5 season) 2025 INFLUENZA VACCINE (#1) 2025 02/15/2023 ZOSTER VACCINE (1 of 2) 2043 DEPRESSION SCREENING Completed 07/25/2024 HIB VACCINE Aged Out No longer eligi ble based on patient's age to complete this topic MENINGOCOCCAL (Group B) VACC INE SHARED DECISION-MAKING Aged Out No longer eligibl e based on patient's age to complete this topic MENINGOCOCCAL GROUPS A/C/Y/W VACCINE Aged Out No longer eligible b ased on patient's age to complete this topic PNEUMOCOCCAL VACCINE Aged Out No long er eligible based on patient's age to complete this topic Insurance [employer] Care Teams Certified Composites Technician Relationship Specialty Start Date End Date Dwayne Tejada Update Information PCP - General 01/21/22 Parth Ramos MD [address] [place] [address] Family Medicine 01/19/22
--- OUTSIDE RECORDS SUMMARY | 2025-01-12 09:01 | XMS_ITS | Clinical Summary ---
Author Organization [facility] Address [address] [place] [address] Care Team Providers Care Clinical Quality Rn Name Role Phone Dwayne Tejada MD Primary Care Provider Allergies Active Allergy Reactions Criticality Noted Date Comments Pollen Extracts Sneezing Low 03/05/2019 Medications cetirizine (ZyrTEC) 10 mg tablet Take 1 tablet (10 mg total) by mouth daily Active multivitamin capsule Take 1 capsule by mouth daily Active cholecalciferol (VITAMIN D-3) 50,000 unit capsule Take 1 capsule (50,000 Units total) by mouth once a week Active busPIRone (BUSPAR) 7.5 mg tablet Take 1 tablet (7.5 mg total) by mouth 2 (two) times a day as needed 4 Active escitalopram (LEXAPRO) 10 mg tablet Take 1 tablet (10 mg total) by mouth daily 4 Active tirzepatide, weight loss, (Zepbound) 10 mg/0.5 mL pen injector Inject 0.5 mL (10 mg total) as directed once a week 5 Active levETIRAcetam (KEPPRA) 1,000 mg tabletIndication s:Nonintractable generalized idiopathic epilepsy without status epilepticus (HCC) Take 1 tablet (1,000 mg total) by mouth 2 (two) times a day 180 tablet 3 5 11/21/19 26 Active Active Problems Problem Noted Date Diagnosed Date Generalized seizures 12/27/2019 Assessment & Plan (12/27/2019 3:32 PM CDT): Patient continues on levetiracetam 1000 mg b.i.d. for primary generalized seizures successfully. She has no tolerability with medication. She has recently had a successful . I have reviewed teratogenicity of levetiracetam with her. She does take a vitamin with folic acid supplement. I have renewed levetiracetam 1000 mg b.i.d. as scheduled, and I will plan on seeing her back in 1 year. Pyelectasis of fetus on ultrasound 10/2019 Overview (07/27/2019): - 05/14/19: Mild left pylectasis measuring 4 mm Sequential screen low risk S/p counseling - having repeat measurement with Dr. Orona on Tuesday this upcoming week -if abnl please call us and we will add patient back into our schedule for counseling and comanagement. If normal can return to routine obstetric care with you and no further [facility] visit needed. 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 This is most commonly a transient finding that resolves on subsequent scans, but may indicate impending kidney disease in about 15% of cases. Additionally, mild pyelectasis is associated with trisomy 21, with a likelihood ratio of 1.6. We reviewed the availability of further screening and testing and she would like to proceed with non-invasive screening today. A follow up scan to re-evaluate the kidneys is recommended at 32 weeks, and q 4 weeks if pyelectasis or hydronephrosis persists. The residential treatment staff should be made aware of these findings if hydronephrosis persists, so that appropriate follow up of the baby can be arranged. Seizure disorder in , antepartum, first trimester 03/05/2019 Overview (07/27/2019): S/p counseling Medications: Keppra 1000 mg BID, folic acid MSAFP WNL - Last seizure 2007 - S/p Neurology appt 02/2019 (during ), ok to see patient next after delivery -No further evaluation needed with MFM at this time unless seizures recur. Obesity complicating in second trimest er 03/05/2019 Overview (06/29/2019): BMI 40 S/p counseling - growth US q 4 weeks - NSTs to start at [address] Osborne Supervision of high-risk , unspecified trimester 02/27/2019 Overview (07/27/2019): She will continue routine care with you. [x] Co-management Referring Provider: Geoffrey Orona [phone] No further MFM visits are scheduled but we are more than happy to see the patient again should a need arise. Epilepsy 09/13/2017 Primary generalized epilepsy (CMS/HCC) 8 Assessment & Plan (12/26/2020 9:05 AM CDT): Patient continues on levetiracetam 1000 mg b.i.d. with good tolerability and no interim seizures. I have renewed her levetiracetam 1000 mg b.i.d. as presently prescribed. I have also encouraged use an rhot-gum-cijobdu multivitamin with folic acid on daily basis for reduction of potential teratogenicity. She will follow-up in neurology clinic in a year. Epilepsy with generalized to jhonatan clonic seizures on awakening 04/18/2013 Overview (12/27/2019): epilepsy syndrome: Generalized seizures upon awakening intractable (Y/N): N Last Discussion of Intractability: onset (y/o): etiology: genetic Family History: neuroimaging summary: EEG summary: Nl 10/2010 seizure types: tonic-clonic anticonvulsant comments: LVT successful Encounters Date Type Department Care Team Description 11/20/2024 8:30 AM CDT Office Visit [facility] [address] [place] [phone] Ninfa Thapa NP Memory loss (Primary Dx); Nonintractable generalized idiopathic epilepsy without status epilepticus (HCC) from Last 3 Months Surgical History Surgery Date Site/Laterality Comments ORAL SURGERY Medical History Medical History Date Comments Seizures (HCC) Family History Medical History Relation Name Comments Aortic stenosis Father Hypertension Mother No Known Problems Sister Relation Name Status Comments Father Alive Mother Alive Sister Alive Social History Tobacco Use Types Packs/Day Years Used Date Smoking Tobacco: Never Smokeless Tobacco: Never Tobacco Cessation:Counseling Given: Not Answered Comments Unknown Sex and Gender Information Value Date Recorded Sex Assigned at Not on file Legal Sex Female 1:52 PM CDT Gender Identity Not on file Sexual Orientation Not on file Obstetrics History Para Term AB IAB SAB Ectopic Multiple Livin g Live Births 1 Date Outcome GA Total Labor Labor/2nd/3rd Weight Sex Type Anes PTL Ashley A1 A5 Name Clin Last Filed Vital Signs Vital Sign Reading Time Taken Comments Blood Pressure 106/70 11/20/2024 8:32 AM CDT Pulse 86 11/20/2024 8:32 AM CDT Temperature 36.6 C (97.8 F) 11/23/2021 11:26 AM CDT Respiratory Rate 20 06/29/2019 3:05 PM RADIOACTIVITY TECHNICIAN Oxygen Saturation 99% 11/20/2024 8:32 AM CDT Inhaled Oxygen Concentration - - Weight 77.1 kg (170 lb) 11/20/2024 8:32 AM CDT Height 157.5 cm (5' 2) 11/20/2024 8:32 AM CDT Body Mass Index 31.09 11/20/2024 8:32 AM CDT Plan of Treatment Health Maintenance Due Date Last Done Comments Cervical Cancer Screening 1993 Depression Screening 1993 Hepatitis C Screening 1993 DTaP/Tdap/Td Vaccine (1 - Tdap) 2004 Varicella Vaccines (1 of 2 - 13+ 2-dose series) 2006 Hepatitis B Screening 2011 Regular Well Visit/Exam 18-64 2011 HPV Vaccines (1 - 3-dose SCD M series) 2020 Influenza Vaccine (#1) 2025 3, 02/27/2019 Pneumococcal vaccine <65 Aged Out No longer eligible based on patient's age to complete this topic Insurance ANTHEM ACCESS ANTHEM ACCESS ANTHEM ACCESS Care Teams Clinical Quality Rn Relationship Specialty Start Date End Date Dwayne Tejada MD [address] [place] [address] PCP - General Family Medicine 11/28/23
[2025-01-12 10:37] LABS: Thyroid Stimulating Hormone Reflex 0.728 uIU/mL (0.465-4.68)
== END 2025-01-12 08:57 | disposition home or self-care (01) ==
LOC: ANHLAB 08:58
PROVIDERS: PCP Family Medicine; Visit Provider Nurse Practitioner Obstetrics & Gynecology
DX: Z00.00 Encounter for general adult medical examination without abnormal findings (principal); E66.9 Obesity, unspecified; E55.9 Vitamin D deficiency, unspecified; E04.9 Nontoxic goiter, unspecified
CPT/HCPCS: 36415; 84443